=== PATIENT | male | born 1950 | race Caucasian/White ===

== ENCOUNTER → 2018-08-19 | Emergency (ER) | payer MEDICARE ==
[~2018-08-19] MED LIST: AZITHROMYCIN 250 MG TABLET PO ONE; IPRATROPIUM/ALBUTEROL SULFATE 3 ML AMPUL.NEB NEB ONE; predniSONE 20 MG TABLET PO ONE
== END ==
LOC: ED 02:35
DX: J43.9 Emphysema, unspecified (principal); J06.9 Acute upper respiratory infection, unspecified
CPT/HCPCS: 71020; 94640; 99283